=== PATIENT | male | born 1955 | race African-American/Black ===

== ENCOUNTER 2018-10-31 19:36 | Inpatient (IN) | payer MEDICAID, OTHER ==
[~2018-10-31] VITALS: Ht 168.9 cm; Wt 68.9 kg
[2018-11-01] MEDS ORDERED: SODIUM CHLORIDE 0.9% 1,000 ML IV ONE ×2 (01:39→04:30)
[2018-11-01 02:35] LABS: BASOPHILS % 0.4 % (0.0-2.0); EOSINOPHILS % 0.2 % (0.0-5.0); HEMATOCRIT. 56.8 % (42.0-52.0); HEMOGLOBIN. 18.8 g/dL (14.0-18.0); LYMPHOCYTES % 23.3 % (20.0-50.0); MEAN CORPUSCULAR HEMOGLOBIN 30.7 pg (28.0-32.0); MEAN CORPUSCULAR VOLUME 92.5 fL (80.0-94.0); MEAN PLATELET VOLUME 8.5 fl (7.4-10.4); NEUTROPHILS % 65.1 % (40.0-76.0); PLATELET 156 x1000/uL (130-400); RED BLOOD CELL COUNT 6.14 mill/uL (4.7-6.1); RED CELL DISTRIBUTION WIDTH 13.2 % (11.6-14.6)
[2018-11-01 02:40] LABS: CHLORIDE 126 mEq/L (98-107)
[2018-11-01 04:10] LABS: CHLORIDE 108 mEq/L (98-107)
[2018-11-01] MEDS ORDERED: POTASSIUM CHLORIDE INJ 40 MEQ in DEXT 5% WATER 250 ML IV ONE (04:30)
[2018-11-01] MEDS ORDERED: MAGNESIUM 4 G PREMIX 100 ML IV ONE (04:30)
[2018-11-01] MEDS ORDERED: POTASSIUM CHLORIDE 20MEQ TABLET SR PO ONE (04:30)
[2018-11-01] MEDS ORDERED: CALCIUM GLUCONATE 100MG/ML 10ML VIAL IV ONE (04:30)
[2018-11-01] MEDS ORDERED: LEVOFLOXACIN 750MG PREMIX 150 ML IV ONE (04:45)
[2018-11-01] MEDS ORDERED: ACETAMINOPHEN 325MG TABLET PO PRN ×2 (07:00→08:45)
[2018-11-01 08:00] VITALS: BP 101/69
[2018-11-01] MEDS ORDERED: KETOROLAC 30MG/ML VIAL IV PRN (08:45)
[2018-11-01] MEDS ORDERED: IPRATROPIUM/ALBUTEROL 0.5-3(2.5)MG/3ML NEB INH PRN (08:45)
[2018-11-01] MEDS ORDERED: DOCUSATE SODIUM 100MG CAPSULE PO PRN (08:45)
[2018-11-01] MEDS ORDERED: LORAZEPAM 0.5MG TABLET PO PRN (08:45)
[2018-11-01] MEDS ORDERED: NA PHOS,M-B/NA PHOS,DI-BA ENEMA 118ML PR PRN (08:45)
[2018-11-01] MEDS ORDERED: ONDANSETRON HCL 4MG/2ML INJ IV PRN (08:45)
[2018-11-01] MEDS ORDERED: NITROGLYCERIN 0.4MG TABLET SL SL PRN (08:45)
[2018-11-01] MEDS ORDERED: MAGNESIUM/ALUMINUM HYDROXIDE/SIMETHICONE 30ML UDC PO PRN (08:45)
[2018-11-01] MEDS ORDERED: CLONIDINE 0.1MG TABLET PO PRN (08:45)
[2018-11-01] MEDS ORDERED: MULT1TAB76 MT (09:44)
[2018-11-01 10:08] VITALS: BP 110/71
[2018-11-01] MEDS: GUAIFENESIN 600MG ER TABLET PO SCH ×2 (10:27→21:08)
[2018-11-01] MEDS: FAMOTIDINE 20MG TABLET PO SCH ×2 (10:27→20:20)
[2018-11-01] MEDS: ENOXAPARIN 40MG/0.4ML SYR SUBCUT SCH (10:28)
[2018-11-01 12:00] VITALS: BP 103/68
[2018-11-01 16:00] VITALS: BP 104/67
[2018-11-01] MEDS ORDERED: MAGNESIUM 4 G PREMIX 100 ML IV SCH (19:00)
[2018-11-01 20:00] VITALS: BP 99/67
[2018-11-01] MEDS: GUAIFENESIN 200MG/10ML SUGAR FREE UDC PO PRN ×2 (20:20→21:04)
[2018-11-01] MEDS ORDERED: ZOLPIDEM TARTRATE 5MG TABLET PO PRN (21:00)
[2018-11-02] VITALS: BP 111/72
[2018-11-02 04:33] VITALS: BP 103/68
[2018-11-02] MEDS ORDERED: LEVOFLOXACIN 750MG PREMIX 150 ML IV SCH (06:00)
[2018-11-02 08:00] VITALS: BP 99/60
[2018-11-02] MEDS: ENOXAPARIN 40MG/0.4ML SYR SUBCUT SCH (08:51)
[2018-11-02] MEDS: FAMOTIDINE 20MG TABLET PO SCH (08:51)
[2018-11-02] MEDS: GUAIFENESIN 600MG ER TABLET PO SCH (08:51)
[2018-11-02 10:55] VITALS: BP 99/60
== END 2018-11-02 11:39 | disposition home or self-care (01) | DRG 139 ==
LOC: ER 22:23 → EDBEDREQSVC 11-01 04:41 → EDBEDREQ 11-01 04:41 → EDBEDREQTM 11-01 04:41 → 6EST 11-01 06:58 → EDBEDREQ 11-01 07:01 → EDBEDREQTM 11-01 07:01 → ENRESERV 11-01 07:11
PROVIDERS: ADMIT Internal Medicine; ATTEND Internal Medicine
DX: J18.9 Pneumonia, unspecified organism (principal); N17.0 Acute kidney failure with tubular necrosis; E44.0 Moderate protein-calorie malnutrition; F17.200 Nicotine dependence, unspecified, uncomplicated; E83.52 Hypercalcemia; F10.20 Alcohol dependence, uncomplicated; E83.42 Hypomagnesemia; E83.51 Hypocalcemia; Y90.9 Presence of alcohol in blood, level not specified; Z91.018 Allergy to other foods; Z68.24 Body mass index [BMI] 24.0-24.9, adult
CPT/HCPCS: 36415; 71045; 83036; 83735; 84132; 87804; 93005; 96365; 96366; 96372; 99285; G0482; J1650; J1956; J3475; J7030; J7040